=== PATIENT | female | born 1990 | race Caucasian/White ===

== ENCOUNTER 2023-04-28 09:54 | Outpatient (OUT) | payer OTHER, SELFPAY ==
--- NOTE | 2023-04-28 10:06 | US_ITS ---
[address] [address] Patient Name: JUINOR LINCOLN MRN: [id number] date: 1990 Sex: F Assigned Patient Location: US Current Patient Location: US Accession/Order Number: [id number] Exam Date: 04/28/2023 10:07 Report Date: 04/28/2023 11:41 At the request of: MOISE SMITH Procedure: US pelvis w/ transvaginal EXAMINATION: US pelvis w/ transvaginal HISTORY: polycystic ovarian syndrome E28.2 COMPARISON: No relevant comparison available. FINDINGS: The uterus is normal in size, contour and myometrial echotexture measuring 7.9 x 4.0 x 4.7 cm. No focal myometrial mass. Endometrium measures 13 mm, normal. The right ovary is normal measuring 4.2 x 2.4 x 3.5 cm. Normal color and Doppler flow. Multiple peripheral areas of subcentimeter anechoic echogenicity, follicles The left ovary is normal measuring 4.4 x 2.4 x 2.4 cm. Normal color and Doppler flow. Multiple peripheral areas of subcentimeter anechoic echogenicity, follicles US/US pelvis w/ transvaginal IMPRESSION: Multiple bilateral peripheral ovarian follicles suggestive of polycystic ovarian morphology but not meeting the strict criteria Electronically authenticated by: DANIELLE ROSARIO Date: 04/28/2023 11:41
[2023-04-28 11:57] LABS: Basophils Absolute Auto 0.1 10^3/uL (0.0-0.1); Basophils Percent Auto 0.6 % (0.2-2.0); Eosinophils Absolute Auto 0.3 10^3/uL (0.0-0.7); Eosinophils Percent Auto 2.6 % (0.9-7.0); Hematocrit 37.3 % (36.0-48.0); Hemoglobin 12.3 g/dL (12.0-16.0); Immature Granulocytes Abs Auto 0.03 10^3/uL (0.00-0.03); Immature Granulocytes Pct Auto 0.3 % (0.0-0.5); Lymphocytes Absolute Auto 2.6 10^3/uL (1.2-3.8); Mean Corpuscular Hemoglobin 24.9 pg (26.7-34.0); Mean Corpuscular Volume 75.7 fL (81.0-99.0); Mean Platelet Volume 9.7 fL (9.5-13.5); Monocytes Absolute Auto 0.5 10^3/uL (0.3-0.8); Monocytes Percent Auto 5.2 % (1.7-12.0); Neutrophils Absolute Auto 6.9 10^3/uL (1.4-6.5); Neutrophils Percent Auto 66.3 % (43.0-75.0); Platelet Count 498 10^3/uL (150-450); Red Blood Count 4.93 10^6/uL (4.20-5.40); White Blood Count 10.4 10^3/uL (4.0-11.0)
[2023-05-01 13:08] LABS: Anti-Mullerian Hormone (AMH) 1.57 ng/mL (.)
== END 2023-04-28 09:55 | disposition home or self-care (01) ==
LOC: US 10:00
PROVIDERS: Visit Provider Obstetrics & Gynecology
DX: E28.2 Polycystic ovarian syndrome (principal)
CPT/HCPCS: 36415; 76830; 76856; 82397; 85025

== ENCOUNTER 2023-10-13 07:23 | Day surgery (SDC) | payer OTHER, SELFPAY ==
--- NOTE | 2023-10-13 07:38 | FL_ITS ---
[address] [address] Patient Name: JUNIOR LINCOLN MRN: [id number] date: 1990 Sex: F Assigned Patient Location: LAB Current Patient Location: Accession/Order Number: [id number] Exam Date: 10/13/2023 08:10 Report Date: 10/13/2023 09:30 At the request of: MOISE SMITH Procedure: FL hysterosalpingography EXAMINATION: FL hysterosalpingography, FL Hysterosal cath placement HISTORY: Anovulation, Polycystic Ovarian Syndrome COMPARISON: No relevant comparison available. TECHNIQUE: Informed consent was obtained. A sterile vaginal speculum was introduced and, following cleansing of the cervix, a balloon-tipped catheter was inserted into the endometrial cavity. The procedure was then completed in the usual manner with water-soluble contrast. Standard level fluoroscopic mode of operation utilized. FINDINGS: FALLOPIAN TUBES: Normal opacification of the right fallopian tube with spillage into the peritoneal cavity. The left fallopian tube was initially closed. This eventually opacified with time and increased pressure. No tubal rupture was observed. ENDOMETRIAL CAVITY: No scarring, filling defects, or dilatation. OTHER: Negative. FL/FL hysterosalpingography IMPRESSION: Normal postcontrast opacification of the fallopian tubes with spillage of contrast into the peritoneal cavity. The left fallopian tube was initially occluded Electronically authenticated by: DANIELLE ROSARIO Date: 10/13/2023 09:30
--- NOTE | 2023-10-13 07:38 | FL_ITS ---
[address] [address] Patient Name: JUNIOR LINCOLN MRN: [id number] date: 1990 Sex: F Assigned Patient Location: LAB Current Patient Location: Accession/Order Number: [id number] Exam Date: 10/13/2023 08:10 Report Date: 10/13/2023 09:30 At the request of: MOISE SMITH Procedure: FL Hysterosal cath placement EXAMINATION: FL hysterosalpingography, FL Hysterosal cath placement HISTORY: Anovulation, Polycystic Ovarian Syndrome COMPARISON: No relevant comparison available. TECHNIQUE: Informed consent was obtained. A sterile vaginal speculum was introduced and, following cleansing of the cervix, a balloon-tipped catheter was inserted into the endometrial cavity. The procedure was then completed in the usual manner with water-soluble contrast. Standard level fluoroscopic mode of operation utilized. FINDINGS: FALLOPIAN TUBES: Normal opacification of the right fallopian tube with spillage into the peritoneal cavity. The left fallopian tube was initially closed. This eventually opacified with time and increased pressure. No tubal rupture was observed. ENDOMETRIAL CAVITY: No scarring, filling defects, or dilatation. OTHER: Negative. FL/FL Hysterosal cath placement IMPRESSION: Normal postcontrast opacification of the fallopian tubes with spillage of contrast into the peritoneal cavity. The left fallopian tube was initially occluded Electronically authenticated by: DANIELLE ROSARIO Date: 10/13/2023 09:30
[2023-10-13 07:55] LABS: HCG Quantitative <1 mIU/mL
--- NOTE | 2023-10-13 09:06 | SUR.PREOP ---
10/11/23 Pt instructed on procedure, date, time, and prep.
--- NOTE | 2023-10-13 09:06 | PC.NURSE ---
[id number] Pt denies any vag bleeding, spotting, or cramping.
== END 2023-10-13 08:55 | disposition home or self-care (01) ==
LOC: LAB 07:24
PROVIDERS: Radiology Diagnostic Radiology; Visit Provider Obstetrics & Gynecology
DX: N97.0 Female infertility associated with anovulation (principal); E28.2 Polycystic ovarian syndrome; N83.9 Noninflammatory disorder of ovary, fallopian tube and broad ligament, unspecified
CPT/HCPCS: 36415; 58340; 74740; 84702; Q9966